=== PATIENT | male | born 1945 | race Caucasian/White ===

== ENCOUNTER 2017-11-14 08:48 | Emergency (ER) | payer OTHER, BC ==
[~2017-11-14] VITALS: Ht 165.1 cm; Wt 71.5 kg
[2017-11-14 09:46] LABS: HEMOGLOBIN 16.4 G/DL (12.5-16.6); MCH 31.9 PG (29.0-34.0); MCHC 34.9 G/DL (30.0-36.0); MCV 91.4 FL (86-99); PLATELET COUNT 162 K/uL (156-360); RBC DIS.WIDTH-CV 12.9 % (11.8-14.6); RBC DIS.WIDTH-SD 43.8 % (39-53); RED BLOOD COUNT 5.14 M/uL (4.00-5.50); WHITE BLOOD COUNT 4.7 K/uL (4.1-10.2)
[2017-11-14 10:01] LABS: ALBUMIN 4.5 g/dL (3.2-4.8); CHLORIDE 104 mEq/L (99-109); POTASSIUM 4.9 mEq/L (3.7-5.4); SODIUM 141 mEq/L (136-147)
[2017-11-14 10:03] LABS: GLUCOSE 107 mg/dL (70-99)
[2017-11-14 10:04] LABS: TOTAL PROTEIN 7.1 g/dL (6.4-8.3)
[2017-11-14 10:05] LABS: TOTAL BILIRUBIN 2.5 mg/dL (0.0-1.0)
[2017-11-14 10:07] LABS: ALKALINE PHOSPHATASE 63 IU/L (3-129); CREATININE 1.1 mg/dL (0.6-1.3); GFR ESTIMATE (CALCULATED) > 59 mL/min/ (58.99-99999)
[2017-11-14 10:08] LABS: UREA NITROGEN (BUN) 16 mg/dL (9-23)
[2017-11-14 10:09] LABS: AST (GOT) 20 IU/L (2-34)
[2017-11-14 10:10] LABS: APPEARANCE CLEAR ((CLEAR)); BILIRUBIN NEGATIVE; BLOOD NEGATIVE; COLOR YELLOW ((YELLOW)); GLUCOSE (STRIP) NEGATIVE; KETONES 5; LEUKOCYTES NEGATIVE; NITRITE NEGATIVE; PROTEIN (STRIP) NEGATIVE; SPECIFIC GRAVITY 1.012 (1.000-1.030); UCUL ADDED? NO; UROBILINOGEN 0.2 MG/DL (0.2-1.0)
[2017-11-14 10:10] LABS: ALT (GPT) 16 IU/L (3-49)
[2017-11-14 10:11] LABS: LIPASE 30 U/L (1.0-51.0)
[2017-11-14 13:23] VITALS: BP 174/92
== END 2017-11-14 13:23 | disposition home or self-care (01) ==
LOC: EME 08:48
DX: R10.11 Right upper quadrant pain (principal); M54.9 Dorsalgia, unspecified; N28.1 Cyst of kidney, acquired; Z87.891 Personal history of nicotine dependence
CPT/HCPCS: 74176; 76705; 80053; 81003; 83690; 85027; 93005; 99281; 99284